=== PATIENT | male | born 2000 | race African-American/Black ===

== ENCOUNTER → 2022-08-14 10:36 | Outpatient (CLI) | payer OTHER, BC, SELFPAY ==
[2022-08-14 11:10] LABS: COVID19 -Nasal RAPID Negative (Negative)
== END ==
PROVIDERS: PCP Physician Assistant; Visit Provider Surgery
DX: Z01.812 Encounter for preprocedural laboratory examination (principal); Z20.822 Contact with and (suspected) exposure to COVID-19
CPT/HCPCS: 87635

== ENCOUNTER 2022-08-14 10:38 | Day surgery (SDC) | payer OTHER, BC, SELFPAY ==
--- NOTE | 2022-08-14 | PATH_ITS ---
[facility] Accession Number: [id number] . 01 Material submitted: . PART A: stomach - ANTRUM BIOPSY PART B: esophagus - MID ESOPHAGUS BIOPSY. Modifiers: mid . 01 Diagnosis: A. Antrum, Biopsy: Gastric mucosa with mild chronic inflammation. No Helicobacter pylori organisms identified on immunohistochemical evaluation. No intestinal metaplasia, dysplasia, or malignancy identified. . B. Mid Esophagus, Biopsy: Esophageal squamous epithelium with mild reactive changes, but with no other significant pathologic alterations. No evidence of eosinophilic esophagitis. No fungal organisms identified on special stain. No dysplasia or malignancy identified. MRV 08/18/2022 1309 Local . 01 Electronically signed: . Rand Ames MD, Pathologist NPI- [id number] . 01 Gross description: . Part A: ANTRUM BIOPSY: Received in formalin are 2 fragment(s) of wilburn, soft tissue measuring 0.3 x 0.3 x 0.2 cm to 0.3 x 0.1 x 0.1 cm submitted entirely in 1 cassette(s) Part B: MID ESOPHAGUS BIOPSY: Received in formalin are multiple fragment(s) of wilburn, soft tissue measuring 0.4 x 0.2 x 0.1 cm in aggregate submitted entirely in 1 cassette(s) /CPE 08/15/2022 0916 Local . 01 Microscopic: . A. An immunohistochemical stain was performed to evaluate for Helicobacter organisms and is negative. The control stain showed appropriate reactivity. . * This test was developed and its performance characteristics determined by [facility]. It has not been cleared or approved by the U.S. Food and Drug Administration. The FDA has determined that such clearance or approval is not necessary. This test is used for clinical purposes. It should not be regarded as investigational or for research. . 01 Pathologist provided ICD-10: K29.70 . 01 CPT . 198511, 550910, Q96430, 693433 Specimen Comment: A courtesy copy of this report has been sent to [phone] Performed at: 01 [facility] [address] [place] [address], [place], [place] [id number] MD Rico Guadarrama MD Phone: [phone]
[2022-08-14 13:03] VITALS: BMI 29.8
[2022-08-14 13:12] VITALS: BP 129/80; PULSE 59; RESP 12; TEMP 36.4; O2SAT 99
[2022-08-14] MEDS: LACTATED RINGERS 1,000 ML 42 ML IV (13:17)
--- NOTE | 2022-08-14 14:04 | PM.HP.1 ---
History of Present Illness History of Present Illness Date Patient Seen: 08/14/22 Time Patient Seen: 14:04 Chief complaint: EGD W/POSS BX Narrative: Dysphagia. I reviewed the note by Roberta Grey recently. The patient for some reason stopped his omeprazole at the beginning of July in anticipation of today's procedure. It is not entirely clear why he did this. At any rate symptoms were not improving with the omeprazole. The patient wanted me to know that he had oral sex yesterday and was concerned that there may be something odd about his mouth. Patient History Family & Social History Social History: household members friend(s) Tobacco & Substance use: Tobacco type smokeless tobacco Smoking Status Former smoker alcohol intake current alcohol intake frequency holiday/special occasion Substance Use Type does not use Meds Home Medications and Allergies Home Medications Medication Instructions Recorded Confirmed Type cetirizine 10 mg tablet 10 mg PO DAILY PRN Allergy Symptoms 08/14/22 08/14/22 History diclofenac sodium 1 % topical gel 2 g topical QID PRN Pain (Scale 08/14/22 08/14/22 History Score 1-3) emtricitabine 200 mg-tenofovir 1 tab PO DAILY 08/14/22 08/14/22 History disoproxil fumarate 300 mg tablet (Truvada) Allergies Allergy/AdvReac Type Severity Reaction Status Date / Time No Known Drug Allergies Allergy Verified 08/14/22 13:00 Review of Systems Review of Systems ROS: Yes All systems reviewed with the patient and are negative except as otherwise documented Exam Vital Signs (past 8 hours): - 08/14/22 13:12 Temperature 97.5 F L Pulse Rate 59 L Respiratory Rate 12 Blood Pressure 129/80 Pulse Oximetry 99 Const General: cooperative HENMT Head: normal to inspection Eyes General: appearance normal, both eyes and all related structures Neck Neck: normal visual inspection Chest Chest: normal inspection of the chest Resp Effort & Inspection: normal respiratory effort Cardio Rate: regular rate GI Inspection: normal to inspection Skin General: no rashes or lesions noted Neuro General: patient alert and patient awake Extrem General: normal to inspection and no pedal edema Psych Appearance: grossly normal Assessment & Plan Assessment & Plan narrative: 21-year-old male with dysphagia. EGD is pursued today. Time Spent With Patient Critical Care time: I spent a total of [] minutes of critical care time on this patient's care today; this time is exclusive of procedural time.
--- NOTE | 2022-08-14 14:08 | PM.PREOP ---
Pre-operative Note COVID-19 COVID-19 status: Negative Result date/Date tested (Pos, Neg/Pending): 08/14/22 Criteria for continued procedure: Possibility delay results in more complex future surgery or treatment Interval Note History & Physical reviewed/Exam performed by Physician: Yes Changes to H&P: No ASA Class (for procedural sedation): II
--- NOTE | 2022-08-14 15:09 | PM.OP.EGD ---
Operative Date/Time/Diagnoses Date of procedure: 08/14/22 Time of procedure: 15:10 Pre-op diagnosis: Dysphagia Post-op diagnosis: same Procedure & Clinicians Study performed: EGD with biopsies Same procedure as scheduled: Yes Indications: Dysphagia Surgeon: Mir Barrow Procedure Notes SCOAP/Timeout: Done Procedure in detail: After the risks and benefits were explained, written and verbal informed consent was obtained. The patient was brought into the procedure room and placed into the left lateral decubitus position. Please see nurse planting supervisor notes for sedation details. The scope was introduced into the mouth through the bite block and advanced under direct visualization to the 2nd portion of the duodenum. The scope was slowly withdrawn carefully examining the mucosa for any defects or lesions. Retroflexed views were accomplished in the stomach. The stomach was decompressed, the scope was then removed from the patient who tolerated the procedure well. Sedation minutes: 10 Complications: none Impression: 1. Duodenum: This was visually normal from the bulb through to the 2nd portion. 2. Stomach: No ulcers no mass lesions. No outlet obstruction. Mild gastropathy was appreciated and therefore biopsies were taken from the antrum for exclusion of Helicobacter or other pathology. Retroflexed views of the LES were unremarkable. 3. Esophagus: The squamocolumnar junction correlated with the top of the gastric folds. GE junction was at 44 cm from the incisors. There was no evidence of any esophagitis. No evidence of any stenosis, stricturing, or Schatzki's ring. Visually the esophagus appeared fairly normal but in the context of the patient's symptoms we elected to take mid esophageal biopsies for exclusion of eosinophilic infiltration. Endoscopic diagnosis 1. Gastropathy 2. Otherwise visually unremarkable EGD Post-procedure Plan for aftercare: 1. Await histopathology. 2. Continue anti-reflux therapy. 3. If histology does not provide an explanation for symptoms, esophageal pH and manometry will likely be the next recommended diagnostic steps. Disposition: PACU
[2022-08-14 15:10] VITALS: BP 106/66; PULSE 62; RESP 13; TEMP 36.4; O2SAT 98
[2022-08-14 15:15] VITALS: BP 121/74; PULSE 63; RESP 16; O2SAT 97
[2022-08-14 15:20] VITALS: BP 123/89; PULSE 67; RESP 17; O2SAT 97
[2022-08-14 15:25] VITALS: BP 128/92; PULSE 60; RESP 12; O2SAT 97
[2022-08-14 15:30] VITALS: BP 108/80; PULSE 62; RESP 14; TEMP 36.3; TEMP 36.6; O2SAT 93; O2SAT 98
== END 2022-08-14 15:53 | disposition home or self-care (01) ==
PROVIDERS: PCP Physician Assistant; Referring Provider Internal Medicine Gastroenterology; Visit Provider Internal Medicine Gastroenterology
PROC: 0DJ08ZZ Inspection of Upper Intestinal Tract, Via Natural or Artificial Opening Endoscopic (ICD-10-PCS; CPT 43235; principal; 2022-08-14 14:00)
DX: R13.10 Dysphagia, unspecified (principal); Z20.822 Contact with and (suspected) exposure to COVID-19; K31.9 Disease of stomach and duodenum, unspecified; Z01.812 Encounter for preprocedural laboratory examination; K29.50 Unspecified chronic gastritis without bleeding
CPT/HCPCS: 43239; 87635; C9803; J2704; J3010